=== PATIENT | female | born 1985 | race Hispanic/Latino ===

== ENCOUNTER 2021-11-27 00:47 | Emergency (ER) | payer BC, OTHER | END 2021-11-27 03:04 | disposition home or self-care (01) | LOC: EEVIPCON 00:47 → CSHERS 00:47 | DX: S02.42XA Fracture of alveolus of maxilla, initial encounter for closed fracture (principal); S00.83XA Contusion of other part of head, initial encounter; Y04.0XXA Assault by unarmed brawl or fight, initial encounter | CPT/HCPCS: 70450; 70486; 72125; 76377 ==